=== PATIENT | female | born 1960 | race Two or more races ===

== ENCOUNTER 2020-03-14 05:55 | Day surgery (SDC) | payer OTHER ==
[~2020-03-14 05:55] MED LIST: ATIVAN1 M1 PO; BYDUREON B2 MG/0.85; METFORMIN HCL500 M3 PO; TEMAZEPAM15 MG PO; VASOTEC20 M1 PO; VITAL-D RX TAB1 EACH PO
[2020-03-14] MEDS ORDERED: PERCOCET 5-3251 EACH PO (09:59)
== END 2020-03-14 15:15 | disposition home or self-care (01) ==
LOC: CIR.AMB 05:55
PROVIDERS: ATTEND Surgery
DX: D35.1 Benign neoplasm of parathyroid gland (principal)